=== PATIENT | female | born 1995 | race Caucasian/White ===

== ENCOUNTER → 2019-10-14 10:32 | Outpatient (CLI) | payer OTHER, MEDICAID, SELFPAY ==
--- NOTE | 2019-10-14 | DI.US.S_ITS ---
LIMITED ULTRASOUND OF RIGHT BREAST: 10/14/2019 CLINICAL: Focal right breast pain. No prior exams were available for comparison. Real-time ultrasound of the right breast 9-10 o'clock region was performed on the area of interest. IMPRESSION: NEGATIVE There is no sonographic evidence of malignancy. There are no abnormalities seen in the right breast to correspond with the palpable abnormalities and pain at 9 and 10 o'clock, however, clinical followup is recommended. This exam was interpreted at Station ID: [id number]. Electronically Signed By: Kip alejo/inocencio:10/14/2019 13:01:32 letter sent: Clinical Evaluation Ultrasound BI-RADS: 1 Negative
== END ==
PROVIDERS: PCP Family Medicine; Referring Provider Family Medicine; Visit Provider Family Medicine
DX: N64.4 Mastodynia (principal)
CPT/HCPCS: 76642

== ENCOUNTER → 2020-05-10 15:50 | Outpatient (CLI) | payer OTHER, MEDICAID, SELFPAY ==
[2020-05-10 19:58] LABS: COVID19 -Nasal RAPID Negative (Negative)
== END ==
PROVIDERS: PCP Family Medicine; Visit Provider Specialist
DX: Z01.812 Encounter for preprocedural laboratory examination (principal); Z20.828 Contact with and (suspected) exposure to other viral communicable diseases
CPT/HCPCS: 87635; C9803

== ENCOUNTER 2020-05-12 10:15 | Day surgery (SDC) | payer OTHER, MEDICAID, SELFPAY ==
[2020-05-12] VITALS (9 sets, daily range): BP systolic 101–118; BP diastolic 54–74; PULSE 53–89; RESP 10–16; TEMP 36.4–37.2; O2SAT 98–100; BMI 28.9
--- NOTE | 2020-05-12 | PATH_ITS ---
[facility] Accession Number: [id number] . 01 Material submitted: . rectum - RECTAL BIOPSY . 02 Diagnosis: Rectum, Biopsy: Colonic mucosa with no diagnostic abnormality. Negative for active, chronic, and microscopic colitis. Negative for dysplasia and malignancy. . MRV 05/16/2020 1450 Local . 02 Electronically signed: . Melissa Porter MD, Pathologist NPI- [id number] . 01 Gross description: . RECTAL BIOPSY: Received in formalin are 4 fragment(s) of claudio, soft tissue measuring 0.4 x 0.1 x 0.1 cm to 0.1 x 0.1 x 0.1 cm submitted entirely in 1 cassette(s) /QBJ 05/13/2020 0732 Local . 02 Pathologist provided ICD-10: K62.5 . 02 CPT . 160439 Performed at: 01 [facility] [address] [facility], [place], [place] [id number] MD Kip Alexander MD Phone: [phone] Performed at: 02 [facility] [address] [place], [place] [id number] MD Melissa Porter MD Phone: [phone]
[2020-05-12] MEDS: LACTATED RINGERS 1,000 ML 200 ML IV (10:42)
[2020-05-12] MEDS: ONDANSETRON 4 MG/2 ML INJ IV (11:56)
--- NOTE | 2020-05-12 11:56 | PM.PREOP ---
Pre-operative Note COVID-19 COVID-19 status: Negative Result date/Date tested (Pos, Neg/Pending): 05/11/20 Interval Note History & Physical reviewed/Exam performed by Physician: Yes Changes to H&P: Yes H&P completed within 30 days and has changed as indicated here:: The patient has had an increase in bleeding and thus her colonoscopy was moved up. She has had no bleeding today. ASA Class (for procedural sedation): I
[2020-05-12] MEDS: fentaNYL 250 MCG/5 ML INJ IV ×2 (11:57→12:21)
[2020-05-12] MEDS: MIDAZOLAM 5 MG/5 ML VIAL IV ×2 (11:58→12:21)
--- NOTE | 2020-05-12 12:21 | P.OP.ENDO_ITS ---
Operative Date/Time/Diagnoses Date of procedure: 05/12/20 Time of procedure: 12:21 Pre-op diagnosis: Rectal bleeding. Bright red blood. Post-op diagnosis: same Procedure & Clinicians Study performed: Colonoscope inserted to the a hepatic flexure. Could not get beyond this due to patient's discomfort. Same procedure as scheduled: Yes Indications: Term cause of rectal bleeding Surgeon: Sadi Glaser Procedure Notes SCOAP/Timeout: Performed Procedure in detail: The patient was placed in the left lateral decubitus position and underwent IV sedation directed by the surgeon consisting of fentanyl and Versed. Digital exam was remarkable for small superficial tears at the anus in a typical locations. No evidence of any sentinel piles.. The scope was inserted and advanced through the rectum into the sigmoid, descending, and transverse colon. The patient was quite uncomfortable with through much of this exam despite rather significant sedation. I did not have an anesthesiologist available to provide deep sedation. At what appeared to be somewhat near the hepatic flexure there was a twist in the colon and I could not manipulate through it or under twisted by repositioning the patient. The scope was gradu ally brought out. No Polyps were found. There were no abnormalities seen going in and the rectum. There was some trauma from the scope and I decided to randomly biopsy the rectum though I did not think this was the source of any bleeding. The scope ultimately was retroflexed in the rectum. The appearance was normal. There were no internal hemorrhoids and no ulceration. The scope was very slowly brought through the anus. Again I could see no ulcerative areas or hemorrhoids.. The scope was removed and the patient tolerated the procedure well. The prep was very good. The only abnormality SL with the small tears at the anus. As they were atypical this may represent viral illness. I will attempt to treat with antivirals to see if there is any improvement. Scope withdrawal time: Not applicable Sedation minutes: 23 Findings: other findings (Perianal skin tears.) Specimen(s): other (Rectal biopsies) Complications: none Post-procedure Recommendations: Start medication(s) (Valacyclovir) Follow up: as needed Disposition: PACU
== END 2020-05-12 13:19 | disposition home or self-care (01) ==
PROVIDERS: PCP Family Medicine; Referring Provider Specialist; Visit Provider Specialist
PROC: 0DJD8ZZ Inspection of Lower Intestinal Tract, Via Natural or Artificial Opening Endoscopic (ICD-10-PCS; CPT 45378; principal; 2020-05-12 11:30)
DX: K92.1 Melena (principal); S31.831A Laceration without foreign body of anus, initial encounter
CPT/HCPCS: 45380; 81025; 99152; J2250; J2405; J3010

== ENCOUNTER 2020-08-07 17:41 | Emergency (ER) | payer OTHER, MEDICAID, SELFPAY ==
--- NOTE | 2020-08-07 18:24 | ED.GENADULT ---
HPI - General Adult General Chief complaint: Nausea/Vomiting/Diarrhea Stated complaint: Chills/Fever/Body Aches/Abdominal Cramping Time Seen by Provider: 08/07/20 18:24 History of Present Illness HPI narrative: 24-year-old woman with no significant medical history not on medications with symptoms for the last 48 hours consisting of rigors, chills, general myalgias, vomiting upper abdominal/epigastric and right posterior lung/right flank pain. She describes no palpitations. She has had no dysuria no diarrhea. Last menstrual period was approximately a month ago not currently using control but ?being careful?. Related Data Previous Rx's Medication Instructions Recorded valacyclovir 1,000 mg PO BID #14 tab 05/12/20 dicyclomine 10 mg PO QID PRN #30 cap 08/07/20 Allergies Allergy/AdvReac Type Severity Reaction Status Date / Time hydrocodone Allergy Unknown Verified 08/07/20 18:21 Review of Systems Review of Systems Narrative: Remainder of review of systems including constitutional, ENT, cardiovascular, respiratory, GI, , musculoskeletal, skin, neurologic and psychiatric systems reviewed and are unremarkable except as noted in HPI. Patient History Medical History (Updated 08/07/20 @ 22:40 by Kesha Ceron MD) Normal colonoscopy Family History Mother Hypertension Father Hypertension Grandmother Lung cancer Breast cancer Social History marital status: unmarried,living together household members: significant other occupational status: employed Smoking Status: Never smoker alcohol intake: current substance use type: does not use Smoking Status: Never smoker alcohol intake frequency: a few times a week Substance Use Type: marijuana Exam Narrative Exam Narrative: General: Healthy appearing, complaining of myalgias and in moderate distress. Able to give a complete and coherent history. Well-nourished well-developed HEENT: Moist mucous membranes, normal sclera with reactive pupils, Neck: No JVD, supple Respiratory: Lungs are clear to auscultation, no wheezing no rales no rhonchi. Full and symmetrical air movement Cardiac: Regular rate and rhythm no murmurs no bruits Abdomen: Soft, mid epigastric tenderness without rebound or guarding, moderate tenderness in the right posterior lung clark upper flank but not in the anterior right upper quadrant, good bowel tones, no flank pain Skin: Warm and dry, no rashes Neurologic: Grossly neurologically intact with no obvious asymmetries or abnormalities Extremities: No trauma, well perfused Psych: Cooperative, appropriate insight and affect Initial Vital Signs Initial Vital Signs: Vital Signs Temperature 97.7 F 08/07/20 18:25 Pulse Rate 110 H 08/07/20 18:25 Respiratory Rate 20 08/07/20 18:25 Blood Pressure 127/61 08/07/20 18:25 Pulse Oximetry 99 08/07/20 18:25 Course Orders Ordered: ED Orders 08/07/20 18:10 COVID19 Stat 08/07/20 18:22 EKG-12 Lead Stat 08/07/20 18:32 XR chest 1V Stat 08/07/20 20:19 Urine Culture Stat Urine Microscopic Stat 08/07/20 20:33 CT angio chest PE protocol Stat Discontinued Medications Sodium Chloride (Normal Saline 0.9%) 1,000 mls @ 1,000 mls/hr IV BOLUS ONE Stop: 08/07/20 19:30 Last Infusion: 08/07/20 20:30 Dose: 0 mls/hr Documented by: Admin: 08/07/20 18:58 Dose: 1,000 mls/hr Documented by: JOSIAH Ketorolac Tromethamine (Ketorolac 60 Mg/2 Ml Vial) 15 mg IV NOW ONE Stop: 08/07/20 18:32 Last Admin: 08/07/20 18:57 Dose: 15 mg Documented by: JOSIAH Ondansetron HCl (Ondansetron 4 Mg/2 Ml Inj) 4 mg IV NOW ONE Stop: 08/07/20 18:32 Last Admin: 08/07/20 18:57 Dose: 4 mg Documented by: JOSIAH Ondansetron HCl (Ondansetron 4 Mg Odt Prepack) 1 bottle MISC SEEINSTR ONE Stop: 08/07/20 22:38 Last Admin: 08/07/20 22:47 Dose: 1 bottle Documented by: JOSIAH Vital Signs Vital signs: Vital Signs - 8 hr 08/07/20 18:25 08/07/20 19:48 08/07/20 21:47 Temperature 97.7 F Pulse Rate 110 H 91 H 91 H Respiratory Rate 20 19 19 Blood Pressure 127/61 113/57 L 113/57 L Pulse Oximetry 99 100 97 08/07/20 22:52 Temperature Pulse Rate 95 H Respiratory Rate 20 Blood Pressure 113/57 L Pulse Oximetry 98 Medical Decision Making Medical Records Medical records reviewed: Yes I reviewed the patient's medical records. Lab Data Lab results reviewed: Yes I reviewed the patient's lab results. Result diagrams: 08/07/20 15:30 08/07/20 15:30 Labs: Lab Results 08/07/20 08/07/20 08/07/20 Range/Units 15:30 15:30 15:30 WBC 13.3 H (4.5-11.0) X10^3/uL RBC 4.26 (4.0-5.2) X10^6/uL Hgb 13.8 (12.0-16.0) g/dL Hct 40.6 (36-46) % MCV 95.5 (80-100) fL MCH 32.4 (26-34) PG MCHC 33.9 (30-36) % RDW 12.3 (11.6-14.8) % Plt Count 169 (150-400) X10^3/uL Neut % (Auto) 84.1 H (50-75) % Lymph % (Auto) 6.3 L (25-40) % Jefferson % (Auto) 9.3 (3-14) % Eos % (Auto) 0.1 L (2-4) % Baso % (Auto) 0.2 (0-2) % Neut # (Auto) 59407 H (3548-9573) /uL Lymph # (Auto) 800 L (8634-0681) /uL Jefferson # (Auto) 1200 H (0-900) /uL Eos # (Auto) 0 (0-450) /uL Baso # (Auto) 0 (0-100) /uL PT 14.8 H (10.1-12.7) SECONDS INR 1.3 (0.9-1.3) APTT 36 (26.4-36.2) SECONDS D-Dimer (<230) ng/mL Sodium 138 (137-145) mmol/L Potassium 4.1 (3.4-5.1) mmol/L Chloride 104 (98-107) mmol/L Carbon Dioxide 28 (22-32) mmol/L BUN 5 L (7-17) mg/dL Creatinine 0.71 (0.52-1.04) mg/dL Estimated GFR > 60.0 (>60) mL/min BUN/Creatinine Ratio 7.0 (6-22) Glucose 114 H (70-100) mg/dL Calcium 9.5 (8.4-10.2) mg/dL Total Bilirubin 0.7 (0.2-1.3) mg/dL AST 20 (14-36) IU/L ALT 12 (<35) IU/L Alkaline Phosphatase 59 (38-126) U/L Total Protein 7.7 (6.3-8.2) g/dL Albumin 4.6 (3.5-5.0) g/dL Globulin 3.1 (1.7-4.1) g/dL Albumin/Globulin Ratio 1.5 (1.0-2.8) Lipase 25 (23-300) U/L Urine RBC (0-5/HPF) Urine WBC (0-5/HPF) Ur Squamous Epith Cells (0-5/HPF) Urine Bacteria (None) Ur Culture Indicated? SARS-CoV-2 (PCR) (Negative) 08/07/20 08/07/20 08/07/20 Range/Units 15:30 18:10 20:19 WBC (4.5-11.0) X10^3/uL RBC (4.0-5.2) X10^6/uL Hgb (12.0-16.0) g/dL Hct (36-46) % MCV (80-100) fL MCH (26-34) PG MCHC (30-36) % RDW (11.6-14.8) % Plt Count (150-400) X10^3/uL Neut % (Auto) (50-75) % Lymph % (Auto) (25-40) % Jefferson % (Auto) (3-14) % Eos % (Auto) (2-4) % Baso % (Auto) (0-2) % Neut # (Auto) (6104-7977) /uL Lymph # (Auto) (0415-4333) /uL Jefferson # (Auto) (0-900) /uL Eos # (Auto) (0-450) /uL Baso # (Auto) (0-100) /uL PT (10.1-12.7) SECONDS INR (0.9-1.3) APTT (26.4-36.2) SECONDS D-Dimer 501 H (<230) ng/mL Sodium (137-145) mmol/L Potassium (3.4-5.1) mmol/L Chloride (98-107) mmol/L Carbon Dioxide (22-32) mmol/L BUN (7-17) mg/dL Creatinine (0.52-1.04) mg/dL Estimated GFR (>60) mL/min BUN/Creatinine Ratio (6-22) Glucose (70-100) mg/dL Calcium (8.4-10.2) mg/dL Total Bilirubin (0.2-1.3) mg/dL AST (14-36) IU/L ALT (<35) IU/L Alkaline Phosphatase (38-126) U/L Total Protein (6.3-8.2) g/dL Albumin (3.5-5.0) g/dL Globulin (1.7-4.1) g/dL Albumin/Globulin Ratio (1.0-2.8) Lipase (23-300) U/L Urine RBC 0-1/hpf (0-5/HPF) Urine WBC 10-30/hpf H (0-5/HPF) Ur Squamous Epith Cells 1-5 /hpf (0-5/HPF) Urine Bacteria Few (2-10) H (None) Ur Culture Indicated? Specimen cultured SARS-CoV-2 (PCR) Negative (Negative) Point of Care Testing Test Results Negative Urine Dip Bedside Urine Glucose Negative Bedside Urine Bilirubin - Negative Bedside Urine Ketone +/- 5 Urine Specific Conley 1.010 Bedside Urine Occult Blood - Negative Bedside Urine pH 8.5 Bedside Urine Protein + 30 Bedside Urine Urobilinogen +/- 1mg Bedside Urine Nitrite - Negative Bedside Urine Leukocytes + 70 Esterase Point of care testing: Point of Care Testing Test Results Negative Urine Dip Bedside Urine Glucose Negative Bedside Urine Bilirubin - Negative Bedside Urine Ketone +/- 5 Urine Specific Conley 1.010 Bedside Urine Occult Blood - Negative Bedside Urine pH 8.5 Bedside Urine Protein + 30 Bedside Urine Urobilinogen +/- 1mg Bedside Urine Nitrite - Negative Bedside Urine Leukocytes + 70 Esterase Imaging Data Chest x-ray: Radiologist's Impression: FINDINGS: Surgical changes and devices: None. Lungs and pleura: Lungs are clear. No pleural effusions or pneumothorax. Mediastinum: Mediastinal contours appear normal. Heart size is normal. Bones and chest wall: No suspicious bony lesions. Overlying soft tissues appear unremarkable. IMPRESSION: No acute process. Dictated by: Tiara Smith M.D. on 08/07/2020 at 19:14 CT scan - chest: Radiologist's Impression: FINDINGS: Image quality: Excellent. Pulmonary arteries: Pulmonary arteries are normal in size, and demonstrate no intraluminal filling defects to suggest central pulmonary embolism. Lungs and pleura: Lungs are clear. No pleural effusions or pneumothorax. Central and peripheral airways are patent. Mediastinum: Heart size is normal, without pericardial effusion. No mediastinal or hilar adenopathy. Thoracic aorta is normal in caliber and enhancement. Esophagus is normal in caliber, without hiatal hernia. Bones and chest wall: No suspicious bony lesions. Ribs and thoracic spine appear intact throughout. Thyroid gland is within normal limits. No axillary or supraclavicular adenopathy. Abdomen: Visualized upper abdominal solid organs appear normal in the early arterial phase of enhancement. IMPRESSION: 1. No pulmonary embolus. 2. No acute process. Dictated by: Tiara Smith M.D. on 08/07/2020 at 21:26 ECG Data Interpretation: Sinus tachycardia Nonspecific ST T wave changes Normal axis, normal intervals MDM Narrative Medical decision making narrative: 24-year-old with viral type symptoms fevers myalgias. She is feeling significantly better after rehydration and Toradol. Workup is unremarkable. COVID test was negative today. Her D-dimer was slightly elevated so a CT a was performed and reveals no evidence of pulmonary embolism or more significant pathology. Specifically there is no clinical sign of COVID type pneumonia appreciated on CT a. at this point patient is feeling significantly better no evidence of sepsis or reason for hospital admission at this time. She does have some questions about chronic abdominal cramping that is been going on for number of months a colonoscopy in April that reportedly was stopped early because of inadequate pain control. She is having trouble accessing a physician on [place] due to medical center changes in ownership. We discussed dietary changes, stress reduction and a brief trial of Bentyl to see if this might help with any of the abdominal cramping. Reassurance is given. Questions answered. She is safe for home discharge Discharge Plan Departure Patient Disposition: Home Clinical Impression: Acute viral syndrome, Abdominal cramping Instructions: DI for Viral Syndrome Activity Restrictions/Additional Instructions: Thank you for coming in today I did not find any life threatening issues or reasons to stay in the hospital. Specifically no evidence of bacterial infection, bladder infection, pneumonia, blood clots in her lungs, heart attack or heart attack like syndrome, significant kidney problems or electrolyte abnormalities. You can use the ondansetron that I have sent home with you for recurrent nausea as needed You do not have COVID We talked about the abdominal cramping is been bothering you for number of months. At this time I do not find any acute physical explanation for this. I am going to suggest that you try Bentyl/dicyclomine which is an antispasm medication that can help with abdominal cramping. Doing the dietary changes you already instituted certainly make some sense. Looking at ways to reduce overall stressors in your life may also be effective for. Please follow-up with your primary care physician I wish you the best Prescriptions: New dicyclomine 10 mg capsule 10 mg PO QID PRN (Reason: Abdominal cramping) Qty: 30 RF: 0 No Action valacyclovir 1 gram tablet 1,000 mg PO BID Qty: 14 RF: 0 Referrals: Christy Ramirez MD [Primary Care Provider] - Stand Alone Forms: Work Release Note
[2020-08-07 18:25] VITALS: BP 127/61; PULSE 110; RESP 20; TEMP 36.5; O2SAT 99; BMI 28.3
--- NOTE | 2020-08-07 18:32 | DI.RAD.S_ITS ---
PROCEDURE: XR CHEST 1V INDICATIONS: fever, cough TECHNIQUE: One view of the chest was acquired. COMPARISON: None. FINDINGS: Surgical changes and devices: None. Lungs and pleura: Lungs are clear. No pleural effusions or pneumothorax. Mediastinum: Mediastinal contours appear normal. Heart size is normal. Bones and chest wall: No suspicious bony lesions. Overlying soft tissues appear unremarkable. IMPRESSION: No acute process. Dictated by: Tiara Smith M.D. on 08/07/2020 at 19:14 Approved by: Tiara Smith M.D. on 08/07/2020 at 19:14
[2020-08-07 18:41] LABS: INR 1.3 (0.9-1.3); Prothrombin Time 14.8 SECONDS (10.1-12.7)
[2020-08-07 18:43] LABS: Add Manual Diff / Slide Review NO; Basophils Absolute Auto 0 /uL (0-100); Basophils Percent Auto 0.2 % (0-2); Eosinophils Absolute Auto 0 /uL (0-450); Eosinophils Percent Auto 0.1 % (2-4); Hematocrit 40.6 % (36-46); Hemoglobin 13.8 g/dL (12.0-16.0); Lymphocytes Absolute Auto 800 /uL (1100-4500); Lymphocytes Percent Auto 6.3 % (25-40); Mean Corpuscular HGB Conc 33.9 % (30-36); Mean Corpuscular Hemoglobin 32.4 PG (26-34); Mean Corpuscular Volume 95.5 fL (80-100); Monocytes Absolute Auto 1200 /uL (0-900); Monocytes Percent Auto 9.3 % (3-14); Neutrophils Absolute Auto 11200 /uL (1500-7000); Neutrophils Percent Auto 84.1 % (50-75); PTT Partial Thromboplastin Tim 36 SECONDS (26.4-36.2); Platelet Count 169 X10^3/uL (150-400); Red Blood Cell Count 4.26 X10^6/uL (4.0-5.2); Red Cell Distribution Width 12.3 % (11.6-14.8); White Blood Cell Count 13.3 X10^3/uL (4.5-11.0)
[2020-08-07 18:44] LABS: Alanine Aminotransferase 12 IU/L (<35); Albumin 4.6 g/dL (3.5-5.0); Albumin Globulin Ratio 1.5 (1.0-2.8); Alkaline Phosphatase 59 U/L (38-126); Aspartate Aminotransferase 20 IU/L (14-36); Bilirubin Total 0.7 mg/dL (0.2-1.3); Blood Urea Nitrogen 5 mg/dL (7-17); Calcium 9.5 mg/dL (8.4-10.2); Carbon Dioxide 28 mmol/L (22-32); Chloride 104 mmol/L (98-107); Estimated Glomerular Filt Rate > 60.0 mL/min (>60); Globulin 3.1 g/dL (1.7-4.1); Glucose 114 mg/dL (70-100); HEMOLYSIS < 15 (0-50); Lipase 25 U/L (23-300); Potassium 4.1 mmol/L (3.4-5.1); Sodium 138 mmol/L (137-145); Total Protein 7.7 g/dL (6.3-8.2)
[2020-08-07] MEDS: KETOROLAC 60 MG/2 ML VIAL 15 MG IV (18:57)
[2020-08-07] MEDS: ONDANSETRON 4 MG/2 ML INJ IV (18:57)
[2020-08-07] MEDS: SODIUM CHLORIDE 0.9% 1,000 ML 1000 ML IV (18:58)
[2020-08-07 19:00] LABS: COVID19 -Nasal RAPID Negative (Negative)
[2020-08-07 19:02] LABS: D Dimer 501 ng/mL (<230)
--- NOTE | 2020-08-07 19:19 | PC.NURSE ---
patient presents to the ED today with complaints of hot flashes and chills saturday afternoon. This morning she started having a fever at around 3:30. She vomited once today and has been having less than normal gas production. Her poop has been small dear poops yesterday but has otherwise been regular since she changed her diet to a lot of whole veggies raw and cooked. Her assessment shows that she has sharp RUQ pain on palpation. She states that her pain does not get worse after eating
[2020-08-07 19:48] VITALS: BP 113/57; PULSE 91; RESP 19; O2SAT 100
--- NOTE | 2020-08-07 20:33 | DI.CT.S_ITS ---
PROCEDURE: CT ANGIO CHEST PE PROTOCOL INDICATIONS: tachycardia and elevated d dimer TECHNIQUE: After the administration of intravenous contrast, 2 mm thick sections acquired from the pulmonary apices to the posterior costophrenic angles. 3-dimensional maximum intensity projection (MIP) coronal and sagittal reformats were then acquired through the thorax. For radiation dose reduction, the following was used: automated exposure control, adjustment of mA and/or kV according to patient size. COMPARISON: None. FINDINGS: Image quality: Excellent. Pulmonary arteries: Pulmonary arteries are normal in size, and demonstrate no intraluminal filling defects to suggest central pulmonary embolism. Lungs and pleura: Lungs are clear. No pleural effusions or pneumothorax. Central and peripheral airways are patent. Mediastinum: Heart size is normal, without pericardial effusion. No mediastinal or hilar adenopathy. Thoracic aorta is normal in caliber and enhancement. Esophagus is normal in caliber, without hiatal hernia. Bones and chest wall: No suspicious bony lesions. Ribs and thoracic spine appear intact throughout. Thyroid gland is within normal limits. No axillary or supraclavicular adenopathy. Abdomen: Visualized upper abdominal solid organs appear normal in the early arterial phase of enhancement. IMPRESSION: 1. No pulmonary embolus. 2. No acute process. Dictated by: Tiara Smith M.D. on 08/07/2020 at 21:26 Approved by: Tiara Smith M.D. on 08/07/2020 at 21:28
[2020-08-07 20:37] LABS: Bacteria Urine Few (2-10); Culture Indicated Urine Specimen Cultured; RBC Urine 0-1/HPF (0-5/HPF); Squamous Epithelial Cell Urine 1-5 /HPF (0-5/HPF); WBC Urine 10-30/HPF (0-5/HPF)
[2020-08-07 21:47] VITALS: BP 113/57; PULSE 91; RESP 19; O2SAT 97
[2020-08-07] MEDS: ONDANSETRON 4 MG ODT PREPACK 1 BOTTLE MISC (22:47)
[2020-08-07 22:52] VITALS: BP 113/57; PULSE 95; RESP 20; O2SAT 98
== END 2020-08-07 22:56 | disposition home or self-care (01) ==
PROVIDERS: Emergency Provider Emergency Medicine; PCP Family Medicine
DX: B34.9 Viral infection, unspecified (principal); R10.9 Unspecified abdominal pain; R11.10 Vomiting, unspecified; Z20.822 Contact with and (suspected) exposure to COVID-19; R00.0 Tachycardia, unspecified
CPT/HCPCS: 36415; 71045; 71275; 80053; 81003; 81015; 81025; 83690; 85025; 85379; 85610; 85730; 87077; 87086; 87186; 87635; 93005; 93010; 96361; 96374; 96375; 99283; 99284; C9803; J1885; J2405; Q9967